=== PATIENT | male | born 1995 | race Hispanic/Latino ===

== ENCOUNTER 2017-05-27 00:01 | Emergency (ER) | payer OTHER ==
[~2017-05-27] VITALS: Ht 177.8 cm; Wt 122.7 kg
[2017-05-27 00:26] VITALS: BP 154/99; PULSE 69; RESP 18; O2SAT 98
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
[2017-05-27] MEDS ORDERED: Ondansetron 2 mg/mL 2 mL Inj IVPUSH PRN (01:15)
[2017-05-27] MEDS ORDERED: HYDROmorphone 0.5 mg/0.5 mL iSecure Syringe IVPUSH PRN (01:15)
[2017-05-27 02:40] LABS: BASOPHILS % (AUTO) 0.3 % (0-3); EOSINOPHILS % (AUTO) 0.9 % (0-5); MONOCYTES % (AUTO) 8.7 % (4-12); Mean Corpuscular Hemoglobin 29.6 pg (27.0-35.0); Mean Corpuscular Volume 83.6 fL (81-100); Platelet Count 212 bil/L (150-400)
[2017-05-27] MEDS ORDERED: HYDROcodone-APAP 10-325 mg PO ONE (04:10)
[2017-05-27] MEDS ORDERED: HYDR-3740 PO (04:10)
[2017-05-27] MEDS ORDERED: IBUP800T28 PO (04:10)
[2017-05-27] MEDS ORDERED: CYCL10TA9 PO (04:10)
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
== END 2017-05-27 04:29 | disposition home or self-care (01) ==
LOC: SED 00:01
DX: S16.1XXA Strain of muscle, fascia and tendon at neck level, initial encounter (principal); S20.219A Contusion of unspecified front wall of thorax, initial encounter; V43.53XA Car driver injured in collision with pick-up truck in traffic accident, initial encounter; Y93.89 Activity, other specified; Y92.410 Unspecified street and highway as the place of occurrence of the external cause; Y99.8 Other external cause status
CPT/HCPCS: 70450; 71260; 72125; 74177; 80053; 85025; 96374; 99285; J1170; Q9967